=== PATIENT | female | born 1965 ===

== ENCOUNTER 2018-08-20 09:54 | Outpatient (CLI) | payer BC ==
[2018-08-20 11:14] LABS: Hematocrit 40.9 % (30.3-42.9); Hemoglobin 13.6 gm/dl (10.1-14.3); Mean Corpuscular HGB Conc 33 % (30-34); Mean Corpuscular Volume 95 fl (79-97); Platelet Count 347 K/mm3 (140-440); Red Blood Count 4.32 M/mm3 (3.65-5.03); Red Cell Distribution Width 12.7 % (13.2-15.2)
[2018-08-20 11:30] LABS: Alanine Aminotransferase 13 units/L (7-56); Albumin 3.9 g/dL (3.9-5); BUN/Creatinine Ratio 17; Blood Urea Nitrogen 10 mg/dL (7-17); Calcium 8.4 mg/dL (8.4-10.2); Chol/HDL Ratio 3.16 %; HDL Cholesterol 50 mg/dL (40-59); Hemolysis Index 1; LDL Cholesterol,Direct 101 mg/dL (50-130)
== END 2018-08-20 09:55 | disposition home or self-care (01) ==
LOC: LAB 09:54
PROVIDERS: ATTEND Internal Medicine
DX: Z00.01 Encounter for general adult medical examination with abnormal findings (principal); J30.1 Allergic rhinitis due to pollen
CPT/HCPCS: 36415; 80053; 80061; 82306; 82607; 83036; 84443; 85027

== ENCOUNTER 2018-10-15 12:10 | Outpatient (CLI) | payer BC ==
--- NOTE | 2018-10-16 08:08 | Mammography Report ---
Bilateral mammogram: No previous studies available. CKD study utilized. Findings: Heterogeneous breast parenchyma bilaterally. Focal circumscribed 4 cm density outer right breast and outer left breast. No microcalcification. Normal axilla. Impression: Circumscribed density right and left breast. Recommend spot compression and sonographic examination. BI-RADS CATEGORY: 0 = Needs additional imaging evaluation ACR BI-RADS MAMMOGRAPHIC CODES: 0 = Needs additional imaging evaluation; 1 = Negative; 2 = Benign; 3 = Probably benign; 4 = Suspicious; 5 = Malignant; 6 = Known biopsy-proven malignancy COMMENT: 1. Dense breast tissue, i.e., adenosis, fibrocystic changes, etc., may obscure an underlying neoplasm. 2. Approximately 10% of cancers are not detected with mammography. 3. A negative mammography report should not delay biopsy if a clinically suspicious mass is present. COMMENT: Patient follow-up letters are generated in EPS.
== END 2018-10-15 12:11 | disposition home or self-care (01) ==
LOC: MAMMO 12:10
PROVIDERS: ATTEND Internal Medicine
DX: Z12.31 Encounter for screening mammogram for malignant neoplasm of breast (principal)
CPT/HCPCS: 77067

== ENCOUNTER 2018-12-06 11:58 | Emergency (ER) | payer BC ==
[2018-12-06] MEDS ORDERED: SOLU-Medrol IV ONE (12:12)
[2018-12-06] MEDS ORDERED: ADRENALINE P/F SUB-Q ONE ×2 (12:12→12:52)
[2018-12-06] MEDS ORDERED: BENADRYL IV ONE (12:12)
[2018-12-06] MEDS ORDERED: PEPCID IV ONE (12:12)
[2018-12-06] MEDS ORDERED: NACL 0.9% 1000 ML 1,000 ML IV ONE (12:12)
[2018-12-06] MEDS ORDERED: ATROVENT IH ONE (12:14)
[2018-12-06] MEDS ORDERED: PROVENTIL IH ONE (12:14)
--- NOTE | 2018-12-06 12:20 | Emergency Department Report ---
ED Shortness of Breath HPI - General Chief Complaint: Dyspnea/Respdistress Stated Complaint: STEFAN Time Seen by Provider: 12/06/18 12:12 Source: patient, family, EMS Mode of arrival: Stretcher Limitations: Language Barrier - History of Present Illness Initial Comments: 52-year-old female presents to ED with shortness of breath, wheezing, after taking a pill for headache. She denies any chest pain. EMS were called to the scene, patient was found to be wheezing, and saturations were in the low 50s, therefore she was given multiple breathing treatments, Solu-Medrol 125, and placed on a nonrebreather and brought to ED. Patient states she is most improved, still complaining of a headache, and wheezing. - Related Data Previous Rx's Medication Instructions Recorded Last Taken Type Albuterol Sulfate [Proventil Hfa] 1 puff IH 4XD PRN #1 hfa.aer.ad 12/06/18 Unknown Rx Prednisone [predniSONE 5 mg (6-Day 5 mg PO .TAPER #1 tab.ds.pk 12/06/18 Unknown Rx Pack, 21 Tabs)] Allergies Allergy/AdvReac Type Severity Reaction Status Date / Time No Known Allergies Allergy Unverified 12/06/18 12:14 ED Review of Systems ROS: Stated complaint: STEFAN Other details as noted in HPI ED Past Medical Hx - Past Medical History Previous Medical History?: Yes Hx Hypertension: No Hx Diabetes: No Hx Asthma: Yes - Social History Smoking Status: Never Smoker - Medications Home Medications: Home Medications Medication Instructions Recorded Confirmed Last Taken Type Albuterol Sulfate [Proventil Hfa] 1 puff IH 4XD PRN #1 hfa.aer.ad 12/06/18 Unknown Rx Prednisone [predniSONE 5 mg (6-Day 5 mg PO .TAPER #1 tab.ds.pk 12/06/18 Unknown Rx Pack, 21 Tabs)] ED Physical Exam - General Limitations: Language Barrier General appearance: alert, in no apparent distress - Head Head exam: Present: atraumatic, normocephalic - Eye Eye exam: Present: normal appearance, PERRL - ENT ENT exam: Present: normal exam, normal orophraynx - Respiratory Respiratory exam: Present: wheezes - Cardiovascular Cardiovascular Exam: Present: normal rhythm, tachycardia - GI/Abdominal GI/Abdominal exam: Present: soft - Extremities Exam Extremities exam: Present: normal inspection - Back Exam Back exam: Present: normal inspection ED Course Vital Signs 12/06/18 12/06/18 12/06/18 12:09 12:15 12:30 Temperature 98.5 F Pulse Rate 103 H 92 H Pulse Rate [ 97 H Anterior] Respiratory 24 17 Rate Respiratory 19 Rate [Anterior] Blood Pressure 96/60 96/60 O2 Sat by Pulse 98 97 Oximetry 12/06/18 12/06/18 12/06/18 12:31 13:00 13:30 Temperature Pulse Rate 134 H 96 H Pulse Rate [ 100 H Anterior] Respiratory 20 17 Rate Respiratory 19 Rate [Anterior] Blood Pressure 103/58 144/119 O2 Sat by Pulse 100 100 Oximetry 12/06/18 12/06/18 14:00 14:30 Temperature Pulse Rate 97 H 98 H Pulse Rate [ Anterior] Respiratory 25 H 19 Rate Respiratory Rate [Anterior] Blood Pressure 122/73 111/66 O2 Sat by Pulse 100 99 Oximetry ED Medical Decision Making - Lab Data Result diagrams: 12/06/18 12:18 12/06/18 12:18 Critical care attestation.: If time is entered above; I have spent that time in minutes in the direct care of this critically ill patient, excluding procedure time. ED Disposition Clinical Impression: Acute allergic reaction Qualifiers: Encounter type: initial encounter Qualified Code(s): T78.40XA - Allergy, unspecified, initial encounter Is pt being admited?: No Does the pt Need Aspirin: No Condition: Stable Instructions: Allergies (ED) Prescriptions: Prednisone [predniSONE 5 mg (6-Day Pack, 21 Tabs)] 5 mg PO .TAPER #1 tab.ds.pk Albuterol Sulfate [Proventil Hfa] 1 puff IH 4XD PRN #1 hfa.aer.ad PRN Reason: Wheezing Referrals: JANET PISANOON [facility] OF [facility] MD LORIE [Primary Care Provider] - 3-5 Days Print Language: BELGIAN
[2018-12-06 12:29] LABS: Basophils # (Auto) 0.1 K/mm3 (0.0-0.1); Basophils % (Auto) 0.6 % (0.0-1.8); Eosinophils # (Auto) 0.4 K/mm3 (0.0-0.4); Eosinophils % (Auto) 3.9 % (0.0-4.3); Hematocrit 40.7 % (30.3-42.9); Hemoglobin 13.9 gm/dl (10.1-14.3); Lymphocytes # (Auto) 3.1 K/mm3 (1.2-5.4); Lymphocytes % (Auto) 28.4 % (13.4-35.0); Mean Corpuscular HGB Conc 34 % (30-34); Mean Corpuscular Volume 95 fl (79-97); Monocytes # (Auto) 0.5 K/mm3 (0.0-0.8); Monocytes % (Auto) 4.4 % (0.0-7.3); Platelet Count 272 K/mm3 (140-440); Red Blood Count 4.29 M/mm3 (3.65-5.03); Red Cell Distribution Width 13.6 % (13.2-15.2)
[2018-12-06 12:51] LABS: Alanine Aminotransferase 15 units/L (7-56); Albumin 4.1 g/dL (3.9-5); BUN/Creatinine Ratio 15; Blood Urea Nitrogen 12 mg/dL (7-17); Calcium 8.7 mg/dL (8.4-10.2); Hemolysis Index 8
--- NOTE | 2018-12-06 13:04 | XRay Report ---
CHEST 1 VIEW INDICATION: Allergic Reaction. COMPARISON: None. FINDINGS: Support devices: None. Heart: Within normal limits. Lungs/Pleura: No acute air space or interstitial disease. Additional findings: Prior granulomatous exposure. IMPRESSION: No acute abnormality. Signer Name: Swapnil Oconnor MD Signed: 12/06/2018 1:00 PM Workstation Name: [id number]
[2018-12-06 14:40] VITALS: BP 111/66
== END 2018-12-06 14:54 ==
LOC: ED 11:58
DX: T78.40XA Allergy, unspecified, initial encounter (principal); J45.909 Unspecified asthma, uncomplicated; Z79.899 Other long term (current) drug therapy; Y92.89 Other specified places as the place of occurrence of the external cause
CPT/HCPCS: 36415; 71045; 80053; 84484; 85025; 93005; 93010; 94640; 96372; 96374; 96375; 99284; J0171; J1200; J7030; 94644

== ENCOUNTER 2019-03-04 09:19 | Outpatient (CLI) | payer BC ==
[2019-03-04 10:42] LABS: Chol/HDL Ratio 3.58 %
[2019-03-07 11:18] LABS: Vitamin D, 25-OH, D2 <4 ng/mL
== END 2019-03-04 09:20 | disposition home or self-care (01) ==
LOC: LAB 09:19
PROVIDERS: ATTEND Internal Medicine
DX: E78.5 Hyperlipidemia, unspecified (principal); E55.9 Vitamin D deficiency, unspecified; R73.03 Prediabetes; J45.909 Unspecified asthma, uncomplicated
CPT/HCPCS: 36415; 80061; 82306; 83036

== ENCOUNTER 2019-03-24 09:15 | Outpatient (CLI) | payer BC ==
--- NOTE | 2019-03-24 11:31 | Ultrasound Report ---
BILATERAL DIGITAL DIAGNOSTIC MAMMOGRAM WITH CAD -- 03/24/2019 BILATERAL COMPLETE BREAST ULTRASOUND INDICATION: Follow-up after abnormal screening mammogram. ABNORMAL MAMMO TECHNIQUE: Digital bilateral mammographic imaging was performed. Spot compression views were obtaine d. Complete ultrasound of all four (4) quadrants was performed. This examination was interpreted with the benefit of Computer-Aided Detection (CAD) analysis. COMPARISON: 10/15/2018 FINDINGS: Breast Density: The breasts are extremely dense, which lowers the sensitivity of mammography. MAMMOGRAPHIC FINDINGS: Multiple bilateral circumscribed asymmetries persist. No architectural distort ion or suspicious calcifications. ULTRASOUND FINDINGS: Complete sonographic evaluation of all 4 quadrants and retroareolar region was p erformed. Ultrasound demonstrated numerous bilateral benign cysts. The largest on the right is at 9 :00 7 cm from the nipple measuring 3.5 x 2.3 x 2.0 cm. A solid oval slightly irregular right breast m ass at 2:00 6 cm from the nipple measures 1.4 x 1.2 x 0.9 cm. The largest cyst in the left breast is at 12:00 9 cm from the nipple. It has a thin septation and measures 4.2 x 2.6 x 3.4 cm. A left breast cyst at 3:00 9 cm from the nipple measures 4.0 x 1.4 x 3.4 cm. No solid mass of the left breast. IMPRESSION: Bilateral benign cysts and a 1.4 cm solid right breast mass at 2:00 6 cm from the nipple. Recommend ultrasound-guided needle biopsy of the right breast mass. The recommendation for needle biopsy of the right breast was communicated to the patient by the [facility] sound technologist. Follow up recommendation: Biopsy BI-RADS Category 4: Suspicious for Malignancy. A "normal" or negative report should not discourage follow up or biopsy of a clinically significant f inding. A written summary of these findings will be mailed to the patient. The patient will be entered into a mammography reporting system which will generate a reminder letter for the patient's next appointmen t at the appropriate interval. According to the [employer], yearly mammograms are recommended starting at age 40 and continuing as long as a woman is in good health. Breast MRI is recommended for women with an christal roximately 20-25% or greater lifetime risk of breast cancer, including women with a strong family his tory of breast or ovarian cancer and women who have been treated for Hodgkin's disease. Signer Name: Evelio Nj MD Signed: 03/24/2019 11:27 AM Workstation Name: [id number]
== END 2019-03-24 09:16 | disposition home or self-care (01) ==
LOC: MAMMO 09:15
PROVIDERS: ATTEND Internal Medicine
DX: N60.01 Solitary cyst of right breast (principal); N60.02 Solitary cyst of left breast
CPT/HCPCS: 77066

== ENCOUNTER 2019-04-04 14:58 | Outpatient (CLI) | payer BC | END 2019-04-04 14:59 | disposition home or self-care (01) | LOC: LABHHL 14:58 | PROVIDERS: ATTEND Surgery | DX: N60.02 Solitary cyst of left breast (principal) | CPT/HCPCS: 88112 ==

== ENCOUNTER 2019-04-09 15:40 | Outpatient (CLI) | payer BC | END 2019-04-09 15:41 | disposition home or self-care (01) | LOC: LABHHL 15:40 | PROVIDERS: ATTEND Surgery | DX: N63.12 Unspecified lump in the right breast, upper inner quadrant (principal); E78.5 Hyperlipidemia, unspecified | CPT/HCPCS: 88305 ==

== ENCOUNTER 2019-05-13 12:58 | Outpatient (CLI) | payer BC ==
--- NOTE | 2019-05-13 15:05 | Mammography Report ---
RIGHT DIGITAL DIAGNOSTIC MAMMOGRAM CLINICAL: For clip placement after ultrasound guided needle biopsy of a lesion at 2:00 6 cm from the nipple. Dr. Baldwin recently biopsied lesion with benign nonspecific pathology. COMPARISON: 03/24/2019 mammogram FINDINGS: 2 biopsy clips are identified at 2:00 approximately 9 cm from the nipple. The larger U-shap ed clip correlates with today's biopsy and the 2 clips are approximately 1 cm apart. IMPRESSION: Concordant clip deployment. Signer Name: Evelio Nj MD Signed: 05/13/2019 3:00 PM Workstation Name: [id number]
--- NOTE | 2019-05-13 15:27 | Ultrasound Report ---
ULTRASOUND-GUIDED NEEDLE CORE BIOPSY RIGHT BREAST WITH CLIP PLACEMENT CLINICAL: Right breast mass at 2:00 6 cm from the nipple. She had biopsy performed by Dr. Nicolasa mcbride with benign nonspecific pathology. FINDINGS: The procedure was explained to the patient and informed consent was obtained through an int erpreter. Ultrasound demonstrated the previously identified hypoechoic solid mass at 2:00 6 cm from the nipple. However, it appears smaller with less distinct margins and measures 8 x 6 x 9 mm compared to 14 x 12 x 9 mm on the initial ultrasound 03/24/2019.. I marked the breast with a felt tip marker and a timeout was called. The skin was prepped with Chloro -Prep and anesthetized with 1% lidocaine. Needle core biopsy was performed through small dermatotomy using ultrasound guidance, 2% lidocaine wi th epinephrine for deep anesthesia and a 14-gauge Achieve biopsy device. 3 cores were obtained and pl aced in formalin. A clip was deployed within the lesion. The patient tolerated the procedure well and there were no apparent complications. Hemostasis was ach ieved with minimal effort and a sterile dressing was applied. A post procedure mammogram demonstrated concordant clip deployment with the clip located approximatel y 1 cm from the previously placed clip.. She left the department in good condition and was given inst ructions for wound care and follow-up. IMPRESSION: Uncomplicated ultrasound guided needle core biopsy with clip placement right breast. Signer Name: Evelio Nj MD Signed: 05/13/2019 3:22 PM Workstation Name: [id number]
== END 2019-05-13 12:59 | disposition home or self-care (01) ==
LOC: SPVWC 12:58
PROVIDERS: ATTEND Surgery
DX: N63.12 Unspecified lump in the right breast, upper inner quadrant (principal); J45.909 Unspecified asthma, uncomplicated; Z79.899 Other long term (current) drug therapy
CPT/HCPCS: 88305; 88312

== ENCOUNTER 2019-10-21 08:18 | Outpatient (CLI) | payer BC | END 2019-10-21 08:19 | disposition home or self-care (01) | LOC: SPVWC 08:18 | PROVIDERS: ATTEND Surgery | DX: Z12.31 Encounter for screening mammogram for malignant neoplasm of breast (principal) | CPT/HCPCS: 77067 ==

== ENCOUNTER 2020-01-06 13:01 | Outpatient (CLI) | payer BC ==
--- NOTE | 2020-01-06 14:49 | Ultrasound Report ---
EXAMINATION: Bilateral Complete Breast Ultrasound, 01/06/2020 INDICATION: Bilateral diffuse lumpiness COMPARISON: 03/24/2019 bilateral breast ultrasound FINDINGS: Complete sonographic evlauation of all 4 quadrants and retroareolar region was performed. M ultiple bilateral scattered benign-appearing breast cysts are seen most noticeable in the upper inner quadrant of the right breast but less prominent than prior study. The lesion at 2:00 previously seen is not identified today. The large cyst seen on the left previously are not identified. No suspiciou s lesions are seen in either breast. IMPRESSION: Mild bilateral scattered benign-appearing breast cysts without suspicious lesion Follow up recommendation: Clinical follow-up is recommended BIRADS: 2: Benign Signer Name: Brent Burnham MD Signed: 01/06/2020 2:44 PM Workstation Name: [id number]
== END 2020-01-06 13:02 | disposition home or self-care (01) ==
LOC: SPVWC 13:01
PROVIDERS: ATTEND Surgery
DX: N63.12 Unspecified lump in the right breast, upper inner quadrant (principal); N64.89 Other specified disorders of breast

== ENCOUNTER 2020-10-22 08:43 | Outpatient (CLI) | payer BC ==
--- NOTE | 2020-10-22 18:31 | Mammography Report ---
DIGITAL SCREENING MAMMOGRAM WITH CAD, 10/22/2020 INDICATION: Routine screening mammography. TECHNIQUE: Digital bilateral 2D mammography was obtained in the craniocaudal and mediolateral obliq ue projections. This examination was interpreted with the benefit of Computer-Aided Detection analysi s. COMPARISON: 10/21/2019 FINDINGS: Breast Density: The breasts are extremely dense, which lowers the sensitivity of mammography. There is no evidence of dominant mass, suspicious calcifications or architectural distortion in eithe r breast. IMPRESSION: Follow up recommendation: Routine yearly BI-RADS Category 1: Negative. A "normal" or negative report should not discourage follow up or biopsy of a clinically significant f inding. A written summary of these findings will be mailed to the patient. The patient will be entered into a mammography reporting system which will generate a reminder letter for the patient's next appointmen t at the appropriate interval. The [employer] recommends yearly mammograms starting at age 40 and continuing as l beatriz as a woman is in good health. Breast MRI is recommended for women with an approximate 20-25% or greater lifetime risk of breast cancer, including women with a strong family history of breast or ova blanquita cancer or who have been treated for Hodgkin's disease. Signer Name: Swapnil Oconnor MD Signed: 10/22/2020 6:26 PM Workstation Name: [id number]
== END 2020-10-22 08:44 | disposition home or self-care (01) ==
LOC: SPVWC 08:43
PROVIDERS: ATTEND Surgery
DX: Z12.31 Encounter for screening mammogram for malignant neoplasm of breast (principal)
CPT/HCPCS: 77067